=== PATIENT | female | born 1985 | race Caucasian/White ===

== ENCOUNTER 2025-06-15 15:31 | Outpatient (AMB) | payer OTHER, SELFPAY ==
--- NOTE | 2025-06-15 15:35 | A.OFFPC_ITS ---
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 History of Present Illness The patient is a 40-year-old female presenting with a request for a referral for a third right knee surgery due to an osteochondral lesion. Osteochondral lesion of the right knee: - The patient has a history of osteochon dral lesion in the right knee, initially caused by a fall at work in 2012, leading to the first surgery where an absorbable screw was placed. - A second surgery occurred two years ag o due to a bone fragment and cartilage detachment, which was removed arthroscopically. - The patient now requires a third surge ry to replace missing cartilage and bone, as advised by her surgeon. Anxiety disorder: - The patient reports a history of anxie ty disorder and has been seeing a therapist for approximately nine years. - She previously experienced mild depres leesa and was treated with sertraline and citalopram, which she no longer requires. Heavy menstrual bleeding: - The patient reports heavy menstrual bl eeding but has no family history of fibroids. - She was previously checked for anemia, which was negative, but she feels there might be an underlying issue. Review of Systems - Musculoskeletal: Reports history of os teochondral lesion in the right knee, requiring multiple surgeries. - Psychiatric: Reports anxiety and histo ry of mild depression, currently managed with therapy. - Hematologic: Reports heavy menstrual b leeding, denies anemia. 10-point ROS reviewed and negative excep t as noted in HPI Past Medical History - Osteochondral lesion of the right knee with two prior surgeries - Anxiety disorder, managed with therapy - History of mild depression, previously treated with sertraline and citalopram Health Maintenance - Blood work planned for anemia, diabete s, liver and kidney function, vitamin deficiencies - Pap smear due, last performed three ye ars ago Physical Exam General: Well-appearing, in no acute distress. Vital signs: Within normal limits. HEENT: Normocephalic, atraumatic. PERRLA, EOMI. Conjunctiva clear, sclera anicteric. Oropharynx clear, mucous membranes moist. TMs intact bilaterally, no fluid observed. Neck: Supple, no lymphadenopathy, no thyromegaly, no JVD or carotid bruits. Cardiovascular: RRR, normal S1/S2, no murmurs, rubs, or gallops. Peripheral pulses 2+ and symmetric. No edema. Respiratory: Lungs clear to auscultation bilaterally, no wheezes, rales, or rhonchi. Normal effort. Abdomen: Soft, non-tender, non-distended. Normoactive bowel sounds. No hepatosplenomegaly, no masses. MSK: Full range of motion, no joint swelling or deformity. Normal gait. Right knee noted for previous surgeries and upcoming third operation. Skin: Warm, dry, intact. No rashes, lesions, or pallor. Neuro: Alert and oriented x3. Cranial nerves II-XII intact. Strength 5/5 throughout. Sensation intact. Reflexes 2+ symmetric. Normal coordination and gait. Psych: Appropriate mood and affect. Normal judgment and insight. History of anxiety and mild depression, previously treated with sertraline and citalopram. Currently seeing a therapist. Plan 1. Osteochondral Lesion Of The Right Kne e - Referral provided for orthopedic consu ltation to plan third surgery for cartilage and bone replacement. 2. Anxiety Disorder - Continued therapy recommended, no curr ent medication required. 3. Heavy Menstrual Bleeding - Blood work to assess for anemia and ot her potential causes. Discussion Notes I discussed with the patient the need for a referral to an orthopedic surgeon for her third right knee surgery. We reviewed her history of anxiety and depression, and I recommended continuing therapy. We also discussed the importance of screening for anemia due to her heavy menstrual bleeding and planned comprehensive blood work. I offered to perform a Pap smear or refer her to an OBGYN, emphasizing the importance of cervical cancer screening. Patient Instructions - Follow up with the orthopedic surgeon for knee surgery planning. - Continue therapy sessions for anxiety management. - [facility] and other health markers. - Schedule a Pap smear for cervical canc er screening. Medical Decision Making The decision to refer the patient for a third knee surgery was based on her history of osteochondral lesions and the need for cartilage replacement. Continued therapy for anxiety was advised due to its effectiveness in managing her symptoms. Blood work was deemed necessary to rule out anemia and assess overall health, given her heavy menstrual bleeding. The importance of cervical cancer screening was highlighted, with options provided for obtaining a Pap smear. Total time spent caring for the patient today was 30 minutes. This includes time spent before the visit reviewing the chart, time spent documenting, and time spent reviewing laboratory results, diagnostic imaging, medications, performing a medically necessary evaluation, counseling on diagnoses, care coordination, ordering appropriate tests. [facility] Medical History (Updated 06/15/25 @ 15:55 by Nilson Castro MD) Arthritis Family History (Updated 06/15/25 @ 15:52 by Celine Kuhn CMA) Mother No problems noted. Father HTN (hypertension) Social History Housing: Apartment Patient Tobacco Use Status: Never used Tobacco service: No Current occupational status: employed Cognitive needs: No Hearing needs: No Vision needs: No Questionnaire PHQ-9 Over the last 2 weeks, how often have you been bothered by any of the following problems? 1. Little interest or pleasure in doing things: not at all 2. Feeling down, depressed, or hopeless: not at all 3. Trouble falling or staying asleep, or sleeping too much: several days 4. Feeling tired or having little energy: not at all 5. Poor appetite or overeating: not at all 6. Feeling bad about yourself - or that you are a failure or have let yourself or your family down: not at all 7. Trouble concentrating on things, such as reading the newspaper or watching television: not at all 8. Moving or speaking so slowly that other people could have noticed. Or the opposite - being so fidgety or restless that you have been moving around a lot more than usual: not at all 9. Thoughts that you would be better off or of hurting yourself in some way: not at all Total score: 1 Source: Developed by Drs. Philippe Kraus, Deb Jade, Bradley Carrion and colleagues, with an educational cecilio from [employer]. Thrive Questionnaire Date Thrive assessed: 06/15/25 I am a: Patient What is your living situation today?: I have a steady place to live Within the past 12 months, did the food you bought not last and you didn't have the money to get more?: Never true Within the past 12 months, did you worry whether your food would run out before you got money to buy more?: Never true Do you have trouble paying for medicines?: No Do you have trouble getting transportation to medical appointments?: No Do you have trouble paying your heating and electricity bill?: Yes Do you have trouble taking care of your child, family member or friend?: No Do you have trouble with day-to-day activities such as bathing, preparing meals, shopping, managing finances, etc.?: No Are you currently unemployed and looking for a job?: No Are you interested in more education?: No Please select the resources that you would like help with: Utilities Currently or been in a relationship where the following occur: No concerns reported THRIVE Score: 1 AUDIT C Alcohol Use Questionnaire (AUDIT-C) 1. How often do you have a drink containing alcohol?: Monthly or less 2. How many drinks containing alcohol do you have on a typical day when you are drinking?: 1 or 2 3. How often do you have six or more drinks on one occasion?: Never Total Score: 1 RONNIE-7 AMB Questionnaire RONNIE-7 Date RONNIE - 7 assessed: 06/15/25 Feeling nervous, anxious, or on edge: 1 = Several days Not being able to stop or control worryin = Several days Worrying too much about different things: 1 = Several days Trouble relaxin = Several days Being so restless that it is hard to sit still: 0 = Not at all Becoming easily annoyed or irritable: 0 = Not at all Feeling afraid as if something awful might happen: 0 = Not at all Total RONNIE-7 score (0-4 normal; 5-9 mild; 10-14 moderate; 15-21 severe): 4 Source: Developed by Drs. Philippe Kraus, Deb Jade, Bradley Carrion and colleagues, with an educational cecilio from [employer]. Physical exam (Primary Care) Vital Signs: Last Vital Signs Temp 98.4 F 06/15/25 15:49 Pulse 87 06/15/25 15:49 BP 136/61 06/15/25 15:49 Pulse Ox 97 06/15/25 15:49 Oxygen Delivery Method Room Air 06/15/25 15:49 BMI result Body Mass Index 24.1 Tobacco/Smoking Status: Tobacco use Status Tobacco use date assessed 06/15/25 06/15/25 15:38 Patient Tobacco Use Status Never used Tobacco 06/15/25 15:53 PHQ-9: PHQ-9 Score PHQ-9: Total score 1 06/15/25 15:53 Thrive Assessment: Date of Thrive Assessment Date Thrive assessed 06/15/25 06/15/25 15:38 Currently or been in a relationship where the following occur: No concerns reported Coding Level of Care Code New Pt Level 4 (13544) Diagnoses Osteochondral lesion M89.9; M94.9 Anxiety disorder F41.9 Menorrhagia N92.0 Assessment & Plan Assessment & Plan (1) Osteochondral lesion: Code(s): M89.9 - Disorder of bone, unspecified; M94.9 - Disorder of cartilage, unspecified (2) Anxiety disorder: Code(s): F41.9 - Anxiety disorder, unspecified (3) Menorrhagia: Code(s): N92.0 - Excessive and frequent menstruation with regular cycle Plan Orders: Orders Complete Blood Count Auto Diff Today Z13.9 - Encounter for screening, unspecified Comprehensive Met. Panel Today Z13.9 - Encounter for screening, unspecified Hemoglobin A1c Today Z13.9 - Encounter for screening, unspecified Hepatitis B Surface Antigen Today Z13.9 - Encounter for screening, unspecified Hepatitis C Antibody Today Z13.9 - Encounter for screening, unspecified Lipid Panel Today Z13.9 - Encounter for screening, unspecified Vitamin B12 and Folate Today Z13.9 - Encounter for screening, unspecified Vitamin D 1,25 dihydroxy Today Z13.9 - Encounter for screening, unspecified Hepatitis B Surface Antibody Today Z13.9 - Encounter for screening, unspecified HIV Ab/Ag Today Z13.9 - Encounter for screening, unspecified Magnesium Today Z13.9 - Encounter for screening, unspecified TSH reflex Free T4 Today Z13.9 - Encounter for screening, unspecified UA CC w/rflx Micro + Cult Today Z13.9 - Encounter for screening, unspecified Referrals Orthopedics Referral M19.90 - Unspecified osteoarthritis, unspecified site
[2025-06-15 15:49] VITALS: BP 136/61; PULSE 87; TEMP 36.9; O2SAT 97; BMI 24.1
== END 2025-06-15 16:37 | disposition home or self-care (01) ==
LOC: HO.HMCFMS 15:32
PROVIDERS: Visit Provider Student in an Organized Health Care Education/Training Program
DX: M89.9 Disorder of bone, unspecified (principal); M94.9 Disorder of cartilage, unspecified; F41.9 Anxiety disorder, unspecified; N92.0 Excessive and frequent menstruation with regular cycle